=== PATIENT | male | born 1985 | race Caucasian/White ===

== ENCOUNTER 2017-01-02 20:07 | Inpatient (IN) | payer OTHER ==
--- NOTE | 2017-01-02 20:23 | ER Document Report ---
ED Medical Screen (RME) - General Stated Complaint: ABDOMINAL PAIN Mode of Arrival: Ambulatory Information source: Patient Notes: Patient presents to the emergency department with abdominal pain. Reports history of Crohn's. Reports pain for the past 7 days. Patient is not on antibiotics. Reports vomited one time. Reports he feels warm, chills, diarrhea 6-7 times today. I have greeted and performed a rapid initial assessment of this patient. A comprehensive ED assessment and evaluation of the patient, analysis of test results and completion of the medical decision making process will be conducted by additional ED providers.
[2017-01-02] MEDS ORDERED: IBUPROFEN 800 MG TABLET PO ONE (20:24)
[2017-01-03] MEDS ORDERED: IBUPROFEN 800 MG TABLET ONE (00:52)
[2017-01-03 01:20] LABS: ALANINE AMINOTRANSFERASE 22 U/L (21-72); ALBUMIN 3.3 g/dL (3.5-5.0); ALKALINE PHOSPHATASE 69 U/L (38-126); ANION GAP 14 (5-19); ASPARTATE AMINO TRANSFERASE 12 U/L (17-59); BILIRUBIN,DIRECT 0.2 mg/dL (0.0-0.4); BILIRUBIN,TOTAL 0.5 mg/dL (0.2-1.3); BLOOD UREA NITROGEN 14 mg/dL (7-20); CALCIUM 8.8 mg/dL (8.4-10.2); CARBON DIOXIDE 23 mmol/L (22-30); CHLORIDE 96 mmol/L (98-107); CREATININE RESULT 0.92 mg/dL (0.52-1.25); GLUCOSE 106 mg/dL (75-110); POTASSIUM 4.3 mmol/L (3.6-5.0); SODIUM 133.2 mmol/L (137-145); TOTAL PROTEIN 6.3 g/dL (6.3-8.2)
[2017-01-03 01:21] LABS: HEMATOCRIT 36.6 % (37.9-51.0); HEMOGLOBIN 11.9 g/dL (13.5-17.0); HGB HCT DIFFERENCE -0.9; MEAN CORPUSCULAR HEMOGLOBIN 22.1 pg (27.0-33.4); MEAN CORPUSCULAR HGB CONC 32.4 g/dL (32.0-36.0); MEAN CORPUSCULAR VOLUME 68 fl (80-97); RED BLOOD COUNT 5.36 10^6/uL (4.35-5.55); RED CELL DISTRIBUTION WIDTH 18.9 % (11.5-14.0); WHITE BLOOD COUNT 10.6 10^3/uL (4.0-10.5)
[2017-01-03 01:44] LABS: BASOPHILS % (MANUAL) 0 % (0-2); EOSINOPHILS % (MANUAL) 0 % (0-6); LYMPHOCYTES % (MANUAL) 13 % (13-45); TOTAL CELLS COUNTED 100
[2017-01-03 01:51] LABS: TOXIC GRANULATION 1+
[2017-01-03 01:52] LABS: ANISOCYTOSIS 2+; BURR CELLS SLIGHT; HYPOCHROMASIA SLIGHT; MICROCYTOSIS 2+; OVALOCYTES SLIGHT; POIKILOCYTOSIS SLIGHT; SCHISTOCYTES SLIGHT; TEAR DROP CELLS SLIGHT
[2017-01-03 01:53] LABS: BAND NEUTROPHILS % (MANUAL) 21 % (3-5)
[2017-01-03] MEDS ORDERED: NORMAL SALINE 1000 ML 1,000 ML IV ONE ×2 (03:21→03:28)
[2017-01-03] MEDS ORDERED: METHYLPREDNISOLONE INJ 125 MG/2 ML SDV IV ONE (05:01)
[2017-01-03] MEDS ORDERED: METRONIDAZOLE 500 MG/NS RTU 100 ML IV ONE (05:02)
[2017-01-03] MEDS ORDERED: CIPROFLOXACIN 400 MG/D5W RTU 200 ML IV ONE (05:02)
--- NOTE | 2017-01-03 05:26 | ER Document Report ---
ED GI/ - General Chief Complaint: Abdominal Pain Stated Complaint: ABDOMINAL PAIN Mode of Arrival: Ambulatory Information source: Patient Notes: 31-year-old male presents to the emergency department complaining of lower abdominal pain. Patient reports history of Crohn's disease and states has had progressively worsening pain for approximately the last week. Reports pain to his lower abdomen mostly localized to his right lower quadrant. Reports had 2- 3 episodes of vomiting at onset of pain but has had significantly decreased appetite and by mouth intake and has not vomited over the last 2 days. Reports associated chills without measured temperature at home. Also reports associated loose stools. Reports has had similar episodes in the past but this is the worst in both intensity and duration. Denies blood in emesis or stool, chest pain or shortness of breath. Reports was diagnosed with Crohn's several years ago and does not take any medication at home and has never had any surgical intervention. is visiting local area from [place]. TRAVEL OUTSIDE OF THE [place] IN LAST 30 DAYS: No - HPI Patient complains to provider of: Abdominal pain Onset: Last week Timing/Duration: Worse Quality of pain: Achy, Sharp Severity at maximum: Severe Severity in ED: Moderate Pain Level: 3 Location: RLQ Associated symptoms: Diarrhea, Loss of appetite Similar symptoms previously: Yes Recently seen / treated by doctor: No Past Medical History - General Information source: Patient - Social History Smoking Status: Current Every Day Smoker Frequency of alcohol use: Rare Drug Abuse: Marijuana Lives with: Family Family History: Reviewed & Not Pertinent Patient has suicidal ideation: No Patient has homicidal ideation: No Renal/ Medical History: Denies: Hx Peritoneal Dialysis GI Medical History: Reports: Hx Crohn's Disease Surgical Hx: Negative - Immunizations Hx Diphtheria, Pertussis, Tetanus Vaccination: Yes Review of Systems - Review of Systems Constitutional: See HPI EENT: No symptoms reported Cardiovascular: No symptoms reported Respiratory: No symptoms reported Gastrointestinal: See HPI Genitourinary: No symptoms reported Male Genitourinary: No symptoms reported Musculoskeletal: No symptoms reported Skin: No symptoms reported Hematologic/Lymphatic: No symptoms reported Neurological/Psychological: No symptoms reported -: Yes All other systems reviewed and negative Physical Exam - Vital signs Vitals: Temp Pulse Resp BP Pulse Ox 99.2 F 99 17 104/56 L 100 01/02/17 20:20 01/02/17 20:20 01/02/17 20:20 01/02/17 20:20 01/02/17 20:20 - General General appearance: Alert In distress: None - HEENT Head: Normocephalic, Atraumatic Eyes: Normal Pupils: PERRL - Respiratory Respiratory status: No respiratory distress Chest status: Nontender Breath sounds: Normal Chest palpation: Normal - Cardiovascular Rhythm: Regular Heart sounds: Normal auscultation Murmur: No Pulses: Normal: Radial Normal capillary refill: Yes - Abdominal Inspection: Normal Distension: No distension Bowel sounds: Normal Tenderness: Tender - Diffuse tenderness with palpation to mid and right lower abdomen.. No: Nontender, McBurney's point, Polanco's sign, Guarding, Rebound, Other Organomegaly: No organomegaly - Back Back: Normal, Nontender - Extremities General upper extremity: Normal inspection, Nontender, Normal color, Normal ROM , Normal temperature General lower extremity: Normal inspection, Nontender, Normal color, Normal ROM , Normal temperature, Normal weight bearing - Neurological Neuro grossly intact: Yes Cognition: Normal Orientation: AAOx4 [place] Coma Scale Eye Opening: Spontaneous [place] Coma Scale Verbal: Oriented [place] Coma Scale Motor: Obeys Commands [place] Coma Scale Total: 15 Speech: Normal Motor strength normal: LUE, RUE, LLE, RLE Sensory: Normal - Skin Skin Temperature: Warm Skin Moisture: Dry Skin Color: Normal Course - Re-evaluation Re-evalutation: 01/03/17 05:25 Patient hemodynamically stable, in no distress. CT scan shows moderate fluid distention and diffuse bowel wall thickening of the ileum and right colon. Patient presentation and findings were discussed with the hospitalist Dr. Upton who agrees to assume care and admit to [facility]. ED physician Dr. St consulted during evaluation and treatment per [facility] guidelines. Findings and plan discussed with patient who verbalized understanding and agrees with plan. - Vital Signs Vital signs: Temp Pulse Resp BP Pulse Ox 99.2 F 99 17 104/56 L 98 01/02/17 20:20 01/02/17 20:20 01/02/17 20:20 01/02/17 20:20 01/03/17 06:26 - Laboratory Result Diagrams: 01/03/17 00:55 01/03/17 00:55 Laboratory results interpreted by me: 01/03/17 01/03/17 00:55 00:55 WBC 10.6 H Hgb 11.9 L Hct 36.6 L MCV 68 L MCH 22.1 L RDW 18.9 H Band Neutrophils % 21 H Sodium 133.2 L Chloride 96 L AST 12 L Albumin 3.3 L - Diagnostic Test Radiology reviewed: Image reviewed, Reports reviewed Discharge - Discharge Clinical Impression: Abdominal pain Qualifiers: Abdominal location: right lower quadrant Qualified Code(s): R10.31 - Right lower quadrant pain Condition: Stable Disposition: ADMITTED INPATIENT Admitting Provider: Hospitalist - Dr. Upton Unit Admitted: [facility]
[2017-01-03 05:29] LABS: ADD ON TESTING BLD IN LAB ACKNOWLEDGE
[2017-01-03] MEDS ORDERED: ONDANSETRON HCL INJ/PF 4 MG/2 ML SDV ONE (06:27)
[2017-01-03] MEDS ORDERED: ACETAMINOPHEN 325 MG TABLET PO PRN ×2 (06:48→07:38)
[2017-01-03] MEDS ORDERED: DEXTROSE 5%-NORMAL SALINE 1,000 ML IV PRN (06:48)
[2017-01-03] MEDS ORDERED: PROMETHAZINE HCL INJ 25 MG/1 ML VIAL IV PRN (06:53)
[2017-01-03] MEDS ORDERED: MORPHINE SULFATE 10 MG/ML INJ IV PRN ×2 (06:53→08:10)
[2017-01-03 07:12] LABS: APPEARANCE,URINE CLEAR; BILIRUBIN,URINE NEGATIVE (NEGATIVE); GLUCOSE, URINE NEGATIVE (NEGATIVE); KETONES,URINE TRACE mg/dL (NEGATIVE); LEUKOCYTE ESTERASE,URINE NEGATIVE (NEGATIVE); NITRITE,URINE NEGATIVE (NEGATIVE); PROTEIN,URINE NEGATIVE (NEGATIVE); URINE SPECIFIC GRAVITY 1.024; UROBILINOGEN,URINE NEGATIVE mg/dL (<2.0)
[2017-01-03] MEDS ORDERED: NICOTINE 7 MG/24 HR PATCH.TD24 TD PRN (07:20)
--- NOTE | 2017-01-03 07:22 | PDOC H&P ---
History of Present Illness Admission Date/PCP: 01/03/17 05:45 PCP Gera Koenig Patient complains of: abd pain History of Present Illness: PARISA KEN is a 31 year old male, diagnosed with Crohn's disease 10 years ago, but with no prior hospitalization or surgery for same who presents to the emergency room for evaluation of a 7 day history of slowly progressive mostly sharp stabbing right lower quadrant abdominal pain. Nothing in particular made the pain worse. Poor appetite. 3-4 loose watery stools a day, which is unusual for the patient. No blood or melena. Subjective fever and chills. Positive nausea but no vomiting. Has not been on antibiotics or steroids for the last 3 months, and is on no chronic medications presently. Patient has been discussed with emergency room nurse practitioner who evaluated the patient. . Laboratory results are listed in [facility] and are reviewed. X-ray summary results are listed below, with full report(s) reviewed. . Social history/personal habits: . 2 children. Works in the [employer] department of [employer] in [place]. Occasional beer but not very much or very often. Quarter pack a day smoker. Marijuana use. Allergies/adverse reactions NKDA. Home medications none REVIEW OF SYSTEMS: Constitutional: See history and present illness. Eyes: Wears glasses. ENT: No swallowing problems or complaints. No hearing problems or complaints. Pulmonary: No current complaints. Cardiovascular: No current complaints, including chest pain. Gastrointestinal: See history and present illness. Skin: No current complaints, including rashes. Hematologic: No unusual easy bruising or bleeding. Neurologic: No current complaints, including numbness or tingling. Musculoskeletal: No current complaints, including painful joints. Psychiatric: No current complaints, including anxiety or depression. Endocrine: No current complaints, including polyuria. Genitourinary: No current complaints, including dysuria. PHYSICAL EXAMINATION: 5 feet 11 inches tall. 69.3 kg. BMI 21.3 kg/m. Respirations are 20 and unlabored. 99% saturation on room air. Temperature 99.2. Blood pressure 110/ 54. Thin otherwise adequately nourished young male appearing a bit younger than his stated age. Pleasant awake alert and cooperative. No obvious distress other than perhaps mildly anxious. Also appears to feel a bit under the weather, so to speak. Skin is warm and dry. No grossly obvious evidence of rash in areas of skin examined. No subcutaneous nodules palpated. Tattoos. Piercing of left eyebrow. ENT: Hearing grossly normal to normal conversation. Tongue midline on protrusion pink and slightly tacky. Eyes: No scleral icterus. Pupils equal and reactive to light at 4 mm. Willard conjunctivae. Neck is supple and nontender to gentle active range of motion and palpation. Midline trachea. No palpable thyroid nodule mass enlargement or tenderness. Lymphatic: No palpable cervical or clavicular nodes. Neck and lymphatic exams limited by patient body habitus. Psychiatric: Reasonable insight into acute and chronic medical issues. Oriented to time location and why here. Lungs: Auscultation reveals clear and equal breath sounds bilaterally. No use of accessory respiratory muscles. Cardiovascular: Heart regular rate and rhythm, without gallop murmur or rub. No carotid or abdominal aortic bruits. No ankle or pedal edema. palpable dorsalis pedis pulses. Abdomen: soft, , slightly distended with positive bowel sounds. Quite minimal diffuse abdominal pain, more noticeable on the right lower quadrant, but prominent nowhere. Certainly no evidence of guarding or peritoneal signs. Unable to adequately evaluate abdomen for masses or organomegaly due to distention. Extremities: Feet are warm and dry. No calf tenderness to compression. No grossly obvious visual evidence of calf swelling. Gentle manipulation of lower extremities fails to reveal any obvious evidence of injury or instability to knees hips or ankles. Neurologic: Moves upper extremities grossly normally. Patellar reflexes absent. Absent Babinski. Light touch is intact at feet. Dorsiflexion and plantarflexion of feet 5 / 5 and symmetric. Past Medical History Cardiac Medical History: Denies: Congestive Heart Failure, DVT, Myocardial Infarction, Hyperlipidema, Hypertension, Pulmonary Embolism Pulmonary Medical History: Denies: Asthma, Chronic Obstructive Pulmonary Disease (COPD), Sleep Apnea EENT Medical History: Reports: Eyes - Glasses Denies: Ears, Throat Neurological Medical History: Denies: Hemorrhagic CVA, Ischemic CVA, Seizures Endocrine Medical History: Denies: Diabetes Mellitus Type 1, Diabetes Mellitus Type 2, Hyperthyroidism, Hypothyroidism Renal/ Medical History: Reports: None GI Medical History: Reports: Crohn's Disease Denies: Cirrhosis, Gastroesophageal Reflux Disease, Hepatitis, Peptic Ulcer Disease Musculoskeltal Medical History: Reports: None Skin Medical History: Reports: None Psychiatric Medical History: Reports: Tobacco Dependency Denies: Alcohol Dependency, Depression, General Anxiety Disorder, Substance Abuse Hematology: Reports: None Infectious Medical History: Denies: Clostridium Difficile, Hepatitis B, Hepatitis C, Methicillin- Resistant Staph Aureus Past Surgical History Past Surgical History: Reports: None Social History Information Source: Patient, Emergency Med Personnel, [facility] Records Smoking Status: Current Every Day Smoker Frequency of Alcohol Use: Occasional Drugs: Marijuana - Advance Directive Resuscitation Status: Full Code Surrogate healthcare decision maker:: Sister Family History Parental Family History Reviewed: Yes Children Family History Reviewed: Yes Sibling(s) Family History Reviewed.: Yes Medication/Allergy Home Medications: Ciprofloxacin HCl [Cipro 500 mg Tablet] 500 mg PO BID #20 tablet 01/04/17 Mesalamine [Asacol Hd] 800 mg PO TID #90 tablet. 01/04/17 Metronidazole [Flagyl 500 mg Tablet] 500 mg PO TID #30 tablet 01/04/17 RX: Oxycodone HCl/Acetaminophen [Percocet 5-325 mg Tablet] 1 tab PO Q6HP PRN # 10 tablet 01/04/17 RX: Prednisone 20 mg PO BID #36 tablet 01/04/17 Allergies/Adverse Reactions: No Known Allergies Allergy (Unverified 01/03/17 07:13) Physical Exam Vital Signs: Temp Pulse Resp BP Pulse Ox 99.2 F 99 17 104/56 L 100 01/02/17 20:20 01/02/17 20:20 01/02/17 20:20 01/02/17 20:20 01/02/17 20:20 Results Impressions: Abdomen/Pelvis CT 01/03/17 03:29 IMPRESSION: Moderate fluid distention of the ileus and right colon with diffuse bowel wall thickening consistent with ileus or partial/early obstruction and moderate lymphadenopathy. Differential diagnosis includes infectious, inflammatory/malabsorption, ischemic, and neoplastic processes. Assessment & Plan - Diagnosis (1) Tobacco dependency Is this a current diagnosis for this admission?: YesPlan: . When necessary Nicotine patch. (2) Abnormal CT scan, pelvis Is this a current diagnosis for this admission?: Yes (3) Exacerbation of Crohn's disease of large intestine Is this a current diagnosis for this admission?: YesPlan: Ice chips. When necessary medication for control of pain and nausea and vomiting. IV Pepcid for gastritis prophylaxis. Intravenous Flagyl and Cipro. Solu-Medrol. Gastroenterology consult. I have strongly encouraged patient not to get out of bed without notifying staff , to avoid a fall with injury. Knee high SCDs for DVT prophylaxis, [along with subcutaneous Lovenox . Impression and plans were discussed with patient, who concurs. Time spent in evaluation and management of patient: 65 minutes. (4) Exacerbation of Crohn's disease of small intestine Qualifiers: Digestive disease complication type: other complication Qualified Code(s): K50.018 - Crohn's disease of small intestine with other complication Is this a current diagnosis for this admission?: Yes (5) RLQ abdominal pain Is this a current diagnosis for this admission?: Yes - Inpatient Certification Based on my medical assessment, after consideration of the patient's comorbidities, presenting symptoms, or acuity I expect that the services needed warrant INPATIENT care.: Yes I certify that my determination is in accordance with my understanding of Medicare's requirements for reasonable and necessary INPATIENT services [42 CFR 412.3e].: Yes Medical Necessity: Need Close Monitoring Due to Risk of Patient Decompensation, Need For IV Fluids, Need for Pain Control, Need for IV Antibiotics, Risk of Complication if Not Cared For in Hospital Post Hospital Care: D/C or Transfer Summary
[2017-01-03 10:29] LABS: FOLATE > 20.00 ng/mL (>2.76)
[2017-01-03] MEDS: OXYCODONE-ACETAMINOPHEN 5-325 MG TABLET PO PRN ×2 (11:02→17:28)
[2017-01-03] MEDS ORDERED: NORMAL SALINE 1000 ML 1,000 ML IV PRN (11:03)
[2017-01-03] MEDS: FAMOTIDINE INJ/PF 20 MG/2 ML SDV IV SCH ×2 (11:03→22:44)
[2017-01-03] MEDS: CIPROFLOXACIN 400 MG/D5W RTU 200 ML IV SCH ×2 (11:04→21:27)
[2017-01-03] MEDS: ENOXAPARIN SODIUM INJ 40 MG/0.4 ML DISP.SYRIN SUBCUT SCH (11:05)
[2017-01-03] MEDS ORDERED: METHYLPREDNISOLONE INJ 125 MG/2 ML SDV IV SCH (14:00)
[2017-01-03] MEDS: METRONIDAZOLE 500 MG/NS RTU 100 ML IV SCH ×2 (14:03→22:44)
[2017-01-03] MEDS: MESALAMINE 400 MG CAPSULE.DR PO SCH ×2 (14:04→17:28)
[2017-01-03] MEDS: METHYLPREDNISOLONE INJ 125 MG/2 ML SDV IV SCH ×2 (14:04→22:43)
[2017-01-03 15:20] LABS: PATH REVIEW PATHOLOGIST REVIEWED
[2017-01-03] MEDS ORDERED: INFLUENZA ADLT QUAD (36MOS+) 2016-17 VAC 0.5 ML SYR IM PRN (15:43)
--- NOTE | 2017-01-03 17:52 | PDOC CONSULTATION ---
Consultation Consult Date: 01/03/17 Attending physician:: NELLY COREY Consult reason:: Crohn's disease flare History of Present Illness Admission Date/PCP: 01/03/17 06:58 History of Present Illness: I was asked to see patient by the admitting physician patient has a history of Crohn's disease has not been on medication recently ? if due to insurance reasons patient denies any melena there is some nausea and appetite is altered patient had CT scan does show disease in the terminal ileum area patient states has been diagnosed for many years Past Medical History Cardiac Medical History: Denies: Congestive Heart Failure, DVT, Myocardial Infarction, Hyperlipidema, Hypertension, Pulmonary Embolism Pulmonary Medical History: Denies: Asthma, Chronic Obstructive Pulmonary Disease (COPD), Sleep Apnea EENT Medical History: Reports: Eyes - Glasses Denies: Ears, Throat Neurological Medical History: Denies: Hemorrhagic CVA, Ischemic CVA, Seizures Endocrine Medical History: Denies: Diabetes Mellitus Type 1, Diabetes Mellitus Type 2, Hyperthyroidism, Hypothyroidism Renal/ Medical History: Reports: None GI Medical History: Reports: Crohn's Disease Denies: Cirrhosis, Gastroesophageal Reflux Disease, Hepatitis, Peptic Ulcer Disease Musculoskeltal Medical History: Reports: None Skin Medical History: Reports: None Psychiatric Medical History: Reports: Depression - divorce, Tobacco Dependency Denies: Alcohol Dependency, General Anxiety Disorder, Substance Abuse Hematology: Reports: None Infectious Medical History: Denies: Clostridium Difficile, Hepatitis B, Hepatitis C, Methicillin- Resistant Staph Aureus Past Surgical History Past Surgical History: Reports: None Social History Lives with: Family Smoking Status: Current Every Day Smoker Frequency of Alcohol Use: None Drugs: Marijuana Hx Prescription Drug Abuse: No - Advance Directive Resuscitation Status: Full Code Family History Family History: Reviewed & Not Pertinent Parental Family History Reviewed: Yes Children Family History Reviewed: Unknown Sibling(s) Family History Reviewed.: Unknown Medication/Allergy Home Medications: No Home Medications 01/03/17 Allergies/Adverse Reactions: No Known Allergies Allergy (Unverified 01/03/17 07:13) Review of Systems Constitutional: ABSENT: fever(s), headache(s), night sweats, weakness Eyes: ABSENT: visual disturbances Ears: ABSENT: hearing changes Nose, Mouth, and Throat: ABSENT: mouth pain Cardiovascular: ABSENT: orthropnea, palpitations Respiratory: ABSENT: dyspnea, hemoptysis Gastrointestinal: PRESENT: abdominal pain. ABSENT: coffee ground emesis, hematemesis, hematochezia, vomiting Genitourinary: ABSENT: dysuria, hematuria Integumentary: ABSENT: lesions, pruritus Neurological: ABSENT: syncope, tingling, tremor(s), vertigo Endocrine: ABSENT: polydipsia, polyphagia, polyuria Physical Exam Vital Signs: Temp Pulse Resp BP Pulse Ox 97.6 F 53 L 12 98/52 L 99 01/03/17 15:11 01/03/17 15:11 01/03/17 15:11 01/03/17 15:11 01/03/17 15:11 Intake & Output 01/02/17 01/03/17 01/04/17 06:59 06:59 06:59 Weight 72 kg General appearance: PRESENT: mild distress, thin Head exam: PRESENT: atraumatic, normocephalic Eye exam: PRESENT: EOMI, PERRLA. ABSENT: nystagmus, periorbital swelling, scleral icterus Throat exam: ABSENT: tonsillar exudate, tonsillogmegaly Neck exam: ABSENT: meningismus, tenderness, thyromegaly Respiratory exam: PRESENT: symmetrical, unlabored. ABSENT: wheezes Cardiovascular exam: PRESENT: RRR, +S1, +S2 GI/Abdominal exam: PRESENT: diminished bowel sounds, soft, tenderness. ABSENT: Polanco's sign Extremities exam: ABSENT: joint swelling Musculoskeletal exam: PRESENT: full ROM Neurological exam: PRESENT: oriented to time, oriented to situation, reflexes normal, CN II-XII grossly intact Psychiatric exam: PRESENT: appropriate affect Skin exam: PRESENT: normal color. ABSENT: mottled, pallor, petechiae, urticaria , vesicles Results Impressions: Abdomen/Pelvis CT 01/03/17 03:29 IMPRESSION: Moderate fluid distention of the ileus and right colon with diffuse bowel wall thickening consistent with ileus or partial/early obstruction and moderate lymphadenopathy. Differential diagnosis includes infectious, inflammatory/malabsorption, ischemic, and neoplastic processes. Assessment & Plan - Diagnosis (1) Exacerbation of Crohn's disease of small intestine Qualifiers: Digestive disease complication type: other complication Qualified Code(s): K50.018 - Crohn's disease of small intestine with other complication Is this a current diagnosis for this admission?: YesPlan: given patient's history and CT scan findings , likely to be flare of Crohn's disease for now can start steroids with taper as well as 5ASA products then will need consider for possible biological therapy would place PPD while he is here at [facility], also check for Hep B and hep C may be a candidate for Humira will speak to patient, may need repeat colon evaluation as well if not done recently Risks, benefits and alternatives are discussed further recommendations to follow - Time Time Spent: 50 to 70 Minutes
[2017-01-04] MEDS: METRONIDAZOLE 500 MG/NS RTU 100 ML IV SCH (05:56)
[2017-01-04] MEDS: METHYLPREDNISOLONE INJ 125 MG/2 ML SDV IV SCH (05:57)
[2017-01-04 06:26] LABS: ABSOLUTE LYMPHOCYTES (AUTO) 0.6 10^3/uL (0.5-4.7); ABSOLUTE MONOCYTES (AUTO) 0.6 10^3/uL (0.1-1.4); ABSOLUTE NEUT (AUTO) 5.7 10^3/uL (1.7-8.2); BASOPHILS % (AUTO) 0.2 % (0-2); HEMATOCRIT 30.6 % (37.9-51.0); HEMOGLOBIN 9.9 g/dL (13.5-17.0); HGB HCT DIFFERENCE -0.9; LYMPHOCYTES % (AUTO) 8.7 % (13-45); MEAN CORPUSCULAR HEMOGLOBIN 22.3 pg (27.0-33.4); MEAN CORPUSCULAR HGB CONC 32.4 g/dL (32.0-36.0); MEAN CORPUSCULAR VOLUME 69 fl (80-97); MONOCYTES % (AUTO) 8.2 % (3-13); RED BLOOD COUNT 4.45 10^6/uL (4.35-5.55); RED CELL DISTRIBUTION WIDTH 19.1 % (11.5-14.0); SEGMENTED NEUTROPHILS % (AUTO) 82.9 % (42-78); WHITE BLOOD COUNT 6.8 10^3/uL (4.0-10.5)
[2017-01-04 06:35] LABS: ANION GAP 10 (5-19); BLOOD UREA NITROGEN 13 mg/dL (7-20); CARBON DIOXIDE 23 mmol/L (22-30); CHLORIDE 108 mmol/L (98-107); GLUCOSE 133 mg/dL (75-110); POTASSIUM 4.7 mmol/L (3.6-5.0); SODIUM 140.8 mmol/L (137-145)
[2017-01-04] MEDS: ENOXAPARIN SODIUM INJ 40 MG/0.4 ML DISP.SYRIN SUBCUT SCH (08:13)
[2017-01-04] MEDS ORDERED: IRON SUCROSE COMPLEX INJ/PF 100 MG/5 ML SDV IV ONE (08:30)
[2017-01-04] MEDS: FAMOTIDINE INJ/PF 20 MG/2 ML SDV IV SCH (09:30)
[2017-01-04] MEDS: MESALAMINE 400 MG CAPSULE.DR PO SCH (09:30)
[2017-01-04] MEDS: CIPROFLOXACIN 400 MG/D5W RTU 200 ML IV SCH (09:31)
[2017-01-04] MEDS ORDERED: NORMAL SALINE 1000 ML 1,000 ML IV ONE (09:42)
[2017-01-04] MEDS: OXYCODONE-ACETAMINOPHEN 5-325 MG TABLET PO PRN (10:57)
[2017-01-04 13:20] VITALS: BP 99/55
== END 2017-01-04 14:32 | disposition home or self-care (01) | DRG 387 ==
LOC: ER 20:07 → EH 01-03 05:45 → UNDOADMIN 01-03 05:45 → EH 01-03 06:58 → 3W 01-03 14:56
PROVIDERS: ADMIT Family Medicine; ATTEND Family Medicine
DX: K50.00 Crohn's disease of small intestine without complications (principal); F17.200 Nicotine dependence, unspecified, uncomplicated; F12.90 Cannabis use, unspecified, uncomplicated
CPT/HCPCS: 36415; 74177; 80048; 80053; 81001; 82607; 82728; 82746; 83540; 83550; 83690; 83735; 84466; 85025; 85045; 87040; 90686; 94799; 96365; 96375; 99285; J0744; J1650; J1756; J2270; J2405; J2930; J3490; J7030; S0028